=== PATIENT | male | born 1955 | race Caucasian/White ===

== ENCOUNTER 2022-03-25 09:49 | Emergency (ER) | payer MEDICARE ==
[~2022-03-25] VITALS: Ht 175.3 cm; Wt 75.0 kg
[2022-03-25 10:09] VITALS: BP 137/82
[2022-03-25] MEDS ORDERED: CEPHALEXIN500 MG PO (10:22)
[2022-03-25] MEDS ORDERED: BACTRIM DS1 TAB PO (10:22)
== END 2022-03-25 10:44 | disposition home or self-care (01) ==
LOC: ED 09:49
DX: L03.313 Cellulitis of chest wall (principal)

== ENCOUNTER 2024-04-24 07:28 | Emergency (ER) | payer MEDICARE ==
[~2024-04-24] VITALS: Ht 175.3 cm; Wt 69.0 kg
[~2024-04-24 07:28] MED LIST: BACTRIM DS1 TAB PO; CEPHALEXIN500 MG PO
[2024-04-24 07:34] VITALS: BP 131/95
[2024-04-24] MEDS ORDERED: BENZONATATE200 MG PO (07:57)
[2024-04-24] MEDS ORDERED: ZPAK PO (07:57)
[2024-04-24] MEDS ORDERED: MEDDOSEPAK PO (08:04)
[2024-04-24] MEDS ORDERED: FLONASE AL50 MCG/AC1 NAB (08:04)
[2024-04-24 08:15] VITALS: BP 131/95
== END 2024-04-24 08:15 | disposition home or self-care (01) ==
LOC: ED 07:28
DX: J20.9 Acute bronchitis, unspecified (principal); Z72.0 Tobacco use

== ENCOUNTER 2024-04-28 10:51 | Emergency (ER) | payer MEDICARE ==
[~2024-04-28] VITALS: Ht 175.3 cm; Wt 70.7 kg
[2024-04-28] VITALS (8 sets, daily range): BP systolic 123–153; BP diastolic 94–124
[~2024-04-28 10:51] MED LIST changes: +BENZONATATE200 MG PO; +FLONASE AL50 MCG/AC1 NAB; +MEDDOSEPAK PO; +ZPAK PO
[2024-04-28 11:27] LABS: BASO% 0.2 % (0-3); EOS% 0.2 % (0-8); HEMOGLOBIN 14.5 g/dl (14.0-18.0); LYMPH% 16.6 % (15-41); MEAN CELL VOLUME 86.4 fL CALC (80.0-100.0); MEAN CORPUSCULAR HGB 28.5 pG CALC (26.0-32.0); MONO% 5.8 % (2-13); NEUT# 9.09 thou/uL (1.82-7.42); NEUT% 76.2 % (42-76); RED BLOOD COUNT 5.09 mill/uL (4.70-6.10)
[2024-04-28 11:56] LABS: ALBUMIN 4.6 g/dL (3.2-5.0); ALKALINE PHOSPHATASE 68 u/l (38-126); ANION GAP 8 (6-22 (CALC)); BILIRUBIN, TOTAL 0.8 mg/dL (0.2-1.3); BUN 24 mg/dL (8-23); BUN/CREATININE RATIO 30 (12-20 (CALC)); CARBON DIOXIDE 24 mmol/l (22-30); CHLORIDE 107 mmol/l (95-108); CREATININE 0.8 mg/dL (0.7-1.3); ESTIMATED GFR 96 ML/MIN (>=90 (CALC)); LIPASE 76 u/l (23-300); POTASSIUM 4.7 mmol/l (3.5-5.1); SGOT/AST 22 u/l (19-48); SODIUM 135 mmol/l (137-146); TOTAL PROTEIN 7.5 g/dL (6.3-8.2)
[2024-04-28] MEDS ORDERED: CHERATUSSIN PO (13:10)
[2024-04-28] MEDS ORDERED: NEBULIZER KIT/TUBING PO (13:10)
[2024-04-28] MEDS ORDERED: DOXY-CAPS100 MG PO (13:10)
[2024-04-28] MEDS ORDERED: NEBULIZER PO (13:10)
[2024-04-28] MEDS ORDERED: ALBUTEROL SUL0.083 % IN (13:10)
[2024-04-28] MEDS ORDERED: VENTOLIN HFA108 MCG PO (13:10)
[2024-04-28] MEDS ORDERED: BENZONATATE200 MG PO (13:12)
[2024-04-28] MEDS ORDERED: PREDNISONE50 MG PO (13:13)
[2024-04-28] MEDS ORDERED: methylPREDNISolone SODIUM SUCC 125 MG/2 ML SDV IV ONE (13:15)
[2024-04-28] MEDS ORDERED: IPRATROPIUM-Albuterol 0.5MG-2.5MG/3 ML NEB ONE ×2 (13:15)
== END 2024-04-28 14:10 | disposition home or self-care (01) ==
LOC: ED 10:51
PROVIDERS: Family Medicine
DX: J20.9 Acute bronchitis, unspecified (principal); F17.290 Nicotine dependence, other tobacco product, uncomplicated
CPT/HCPCS: Q9967

== ENCOUNTER 2024-05-03 06:29 | Emergency (ER) | payer MEDICARE ==
[~2024-05-03] VITALS: Ht 175.3 cm; Wt 77.0 kg
[2024-05-03] VITALS (13 sets, daily range): BP systolic 61–147; BP diastolic 34–107
[~2024-05-03 06:29] MED LIST changes: +ALBUTEROL SUL0.083 % IN; +CHERATUSSIN PO; +DOXY-CAPS100 MG PO; +NEBULIZER KIT/TUBING PO; +NEBULIZER PO; +PREDNISONE50 MG PO; +VENTOLIN HFA108 MCG PO
[2024-05-03] MEDS ORDERED: IPRATROPIUM-Albuterol 0.5MG-2.5MG/3 ML NEB ONE (07:30)
[2024-05-03 07:51] LABS: BASO% 0.1 % (0-3); EOS% 2.3 % (0-8); HEMATOCRIT 42.6 % (39.0-50.0); HEMOGLOBIN 14.6 g/dl (14.0-18.0); IMMATURE GRANULOCYTES 2.6 % (0.0-5.0); LYMPH% 27.9 % (15-41); MEAN CORPUSCULAR HGB 29.1 pG CALC (26.0-32.0); MEAN CORPUSCULAR HGB CONC 34.3 g/dL CAL (32.0-36.0); MONO% 8.6 % (2-13); NEUT# 4.3 thou/uL (1.82-7.42); NEUT% 58.5 % (42-76); RED BLOOD COUNT 5.01 mill/uL (4.70-6.10); RED CELL DISTRI WIDTH 14.4 % (11.5-15.5)
[2024-05-03 08:18] LABS: BILIRUBIN, TOTAL 0.6 mg/dL (0.2-1.3); CREATININE 0.8 mg/dL (0.7-1.3); POTASSIUM 4.4 mmol/l (3.5-5.1); TOTAL PROTEIN 6.7 g/dL (6.3-8.2)
== END 2024-05-03 10:28 | disposition home or self-care (01) ==
LOC: ED 06:29
PROVIDERS: Family Medicine
DX: J38.5 Laryngeal spasm (principal); F17.290 Nicotine dependence, other tobacco product, uncomplicated; Z20.822 Contact with and (suspected) exposure to COVID-19
CPT/HCPCS: Q9967